=== PATIENT | female | born 1975 | race Caucasian/White ===

== ENCOUNTER 2022-06-05 09:11 | Outpatient (CLI) | payer BC, SELFPAY ==
[2022-06-05 10:03] LABS: Chloride* 97 mmol/L (96-114)
[2022-06-05 10:04] LABS: Albumin* 4.3 g/dL (3.3-5.0); Potassium* 4.1 mmol/L (3.6-5.1); Sodium* 132 mmol/L (135-149)
[2022-06-05 10:06] LABS: Carbon Dioxide* 30 mmol/L (20-32); Cholesterol* 165 mg/dL (90-199); Creatinine* 0.5 mg/dL (0.5-1.5); Estimated Glomerular Filt Rate 116 ml/min; Total Protein* 7.1 g/dL (6.0-8.3)
[2022-06-05 10:07] LABS: Alanine Aminotransferase* 21 U/L (4-35); Alkaline Phosphatase* 55 U/L (40-150); Aspartate Amino Transferase* 33 U/L (12-35); Bilirubin Total* 0.7 mg/dL (0.1-1.5); Blood Urea Nitrogen* 9 mg/dL (5-24); Calcium* 9.5 mg/dL (8.4-10.6); Glucose* 97 mg/dL (60-115); Triglycerides* 139 mg/dL (40-149)
[2022-06-05 10:08] LABS: HDL Cholesterol* 94 mg/dL (>=50); LDL Cholesterol Calculated 43 mg/dL (<100)
[2022-06-05 10:20] LABS: Vitamin D 25 Hydroxy* 24 ng/mL (30-80)
== END 2022-06-05 09:12 | disposition home or self-care (01) ==
PROVIDERS: PCP Family Medicine; Visit Provider Family Medicine
DX: Z01.419 Encounter for gynecological examination (general) (routine) without abnormal findings (principal); M81.0 Age-related osteoporosis without current pathological fracture; E55.9 Vitamin D deficiency, unspecified; Z13.6 Encounter for screening for cardiovascular disorders
CPT/HCPCS: 80053; 80061; 82306

== ENCOUNTER 2023-09-03 09:36 | Outpatient (CLI) | payer BC, SELFPAY | END 2023-09-03 09:37 | disposition home or self-care (01) | LOC: NFLDREF 09-05 11:20 | PROVIDERS: PCP Family Medicine; Referring Provider Family Medicine; Visit Provider Family Medicine | DX: E55.9 Vitamin D deficiency, unspecified (principal); M81.8 Other osteoporosis without current pathological fracture; Z13.220 Encounter for screening for lipoid disorders | CPT/HCPCS: 80053; 80061; 82306 ==

== ENCOUNTER 2023-09-25 14:23 | Outpatient (CLI) | payer BC, SELFPAY ==
--- NOTE | 2023-09-25 14:30 | CRLHL7_ITS ---
For Patients: As a result of the Century Cures Act, medical imaging exams and procedure reports are released immediately into your electronic medical record. You may view this report before your referring provider. If you have questions, please contact your health care provider. DXA BONE MINERAL DENSITY STUDY Reason for exam: Follow-up osteoporosis. Current height (in): 63. Weight (lb): 110. Menopause age: 46. Ethnicity: White. 1. Have you had a previous hip or vertebral fracture? No. 2. Have you had any fractures during your adult life which did not result from significant trauma (e.g., auto accident)? No. 3. Did either of your parents have a hip fracture? No. 4. Do you smoke? No. 5. Have you ever taken Glucocorticoids? No. 6. Do you have rheumatoid arthritis? No. 7. Do you have secondary osteoporosis? Yes. 8. Do you drink 3 or more alcoholic drinks per day? No. 9. Are you being treated for osteoporosis? Yes. 10. Have you ever taken any of the following medications: Actonel, Evista, Fosamax, Miacalcin, Reclast, Boniva, Forteo, HRT (i.e., estrogen/hormone therapy), Protelos, Prolia, Vitamin D, Calcium, other ??? please specify. ANSWER: Yes, vitamin D and calcium. 11. Do you have any of the following medical conditions: Anorexia or bulimia, asthma or emphysema, end stage renal disease, hyperparathyroidism, any seizure disorders, cancer, inflammatory bowel diseases, hysterectomy, other ??? please specify. ANSWER: No. 12. What was your maximum height (inches)? 63. 13. Do you perform weight bearing exercise regularly? Yes. 14. Do you regularly consume dairy products? No. 15. Do you drink caffeinated beverages? Yes. 16. At what age did your period start? 13. 17. Are you premenopausal? No. 18. How many full-term pregnancies have you had? 2. 19. Have you ever missed your period for more than 6 months in a row (not including or menopause)? Yes. TECHNIQUE: Bone mineral density study was performed using the [employer]. FINDINGS: The results of the study expressed as bone mineral density (BMD) are as follows: Lumbar spine L2 to L4: BMD: 0.841 g/cm2. T-score: -2.2. Z-score: -1.5 Neck Left: BMD: 0.557 g/cm2. T-score: -2.6. Z-score: -2.0 Right: BMD: 0.636 g/cm2. T-score: -1.9. Z-score: -1.3 Total Left: BMD: 0.700 g/cm2. T-score: -2.0. Z-score: -1.6 Right: BMD: 0.709 g/cm2. T-score: -1.9. Z-score: -1.5 IMPRESSION: Osteoporosis. *Comparison exams done prior to 09/2019 were performed on different unit, [employer]. COMPARISON: Compared with scan of 08/15/2021, the bone mineral density has increased by 10.2 percent at the spine and decreased by 1.6 percent at the hip. Compared with scan of 01/02/2017, the bone mineral density has decreased by 14.9 percent at the spine and increased by 0.1 percent at the hip. Ignacio Vizcaino M.D. Diagnostic Radiologist [email or web address] ALBERTO/[email or web address] bella/Dictated by: Ignacio Vizcaino MD @ 09/29/2023 9:46:00 AM (Electronically Signed)
== END 2023-09-25 14:24 | disposition home or self-care (01) ==
LOC: RAD 14:24
PROVIDERS: PCP Family Medicine; Visit Provider Family Medicine
DX: M81.0 Age-related osteoporosis without current pathological fracture (principal)
CPT/HCPCS: 77080

== ENCOUNTER 2023-12-23 11:15 | Outpatient (RCR) | payer BC, SELFPAY | END 2024-04-21 23:59 | disposition home or self-care (01) | PROVIDERS: PCP Family Medicine; Visit Provider Physician Assistant Surgical | DX: M25.511 Pain in right shoulder (principal); M25.311 Other instability, right shoulder; R53.1 Weakness; Z51.89 Encounter for other specified aftercare | CPT/HCPCS: 97110; 97140; 97162 ==

== ENCOUNTER 2024-05-12 07:56 | Day surgery (SDC) | payer BC, SELFPAY ==
--- OUTSIDE RECORDS SUMMARY | 2024-05-12 07:59 | XMS_ITS | Continuity of Care Document ---
Author Name [facility] Address Unknown Organization Unknown Address Unknown Procedures FILTER APPLIED:Only known Procedures with Onset Date within the last 5 years Procedure Date Procedure Provider Additional Inform ation Status COMPREHEN METABOLIC PANEL (44871) Completed VITAMIN D 25 HYDROXY (85453) Completed LIPID PANEL (81033) Comp leted Encounters FILTER APPLIED:Only known Encounters with Admission Date within the last 5 years Encounter Location Admission Discharge Billing Code [facility]
[2024-05-12 08:17] VITALS: BP 131/91; PULSE 92; RESP 16; TEMP 36.7; O2SAT 99
[2024-05-12 08:21] VITALS: BMI 21.1
[2024-05-12 08:25] LABS: Hemoglobin* 14.3 gm/dL (12.0-16.0)
[2024-05-12] MEDS: SODIUM CHLORIDE 0.9 % (FLUSH) 10 ML SYRINGE IVF (08:37)
[2024-05-12 08:41] LABS: Ur HCG Qualitative* Negative (Negative)
--- NOTE | 2024-05-12 09:22 | W.PM.H&PU ---
History & Physical Update History & Physical Update H&P Updates: Healing from a left clavicular fracture. Will be mindful of arm positioning.
[2024-05-12] MEDS: LACTATED RINGERS 1000 ML 1,000 ML 100 ML IV (09:36)
[2024-05-12] MEDS: LIDOCAINE 1%-EPI 1:100,000 10 ML INFILTRATI (10:40)
[2024-05-12] MEDS: FERRIC SUBSULFATE 8 GM VIAL 1 VIAL TOPICAL (10:40)
[2024-05-12 10:55] VITALS: BP 102/72; PULSE 80; RESP 16; TEMP 35.9; O2SAT 97
--- NOTE | 2024-05-12 10:57 | P.ANES_ITS ---
Anesthesia Charges Start Date/Time Anesthesia Start Date: 05/12/24 Anesthesia Start Time: 09:50 Stop Date/Time Anesthesia Stop Date: 05/12/24 Anesthesia Stop Time: 10:56 Coding CPT Codes CPT Codes: ANESTH VAGINAL PROCEDURES - 36901 ([id number]) QK - ACLS NURSE 2-4 CNCRNT ANES PROC, QX - SILICA SPRAY MIXER SVC W/ MD MED DIRECTION, P3 - PATIENT W/SEVERE SYS DISEASE
--- NOTE | 2024-05-12 10:57 | W.ANESCHARGE ---
Anesthesia Charges Start Date/Time Anesthesia Start Date: 05/12/24 Anesthesia Start Time: 09:50 Stop Date/Time Anesthesia Stop Date: 05/12/24 Anesthesia Stop Time: 10:56 Coding CPT Codes CPT Codes: ANESTH VAGINAL PROCEDURES - 75139 ([id number]) QK - SIDE HEMMER 2-4 CNCRNT ANES PROC, QX - ARCHITECTURAL DRAFTSPERSON SVC W/ MD MED DIRECTION, P3 - PATIENT W/SEVERE SYS DISEASE
[2024-05-12 11:10] VITALS: BP 100/60; PULSE 69; RESP 16; O2SAT 99
--- NOTE | 2024-05-12 11:12 | P.ANES_ITS ---
Anesthesia Charges Start Date/Time Anesthesia Start Date: 05/12/24 Anesthesia Start Time: 09:50 Stop Date/Time Anesthesia Stop Date: 05/12/24 Anesthesia Stop Time: 10:56 Coding CPT Codes CPT Codes: ANESTH VAGINAL PROCEDURES - 69600 ([id number]) QK - ASSISTANT FOOD SERVICE DIRECTOR 2-4 CNCRNT ANES PROC, QX - MINE ENGINEERING MANAGER SVC W/ MD MED DIRECTION, P3 - PATIENT W/SEVERE SYS DISEASE
--- NOTE | 2024-05-12 11:12 | W.ANESCHARGE ---
Anesthesia Charges Start Date/Time Anesthesia Start Date: 05/12/24 Anesthesia Start Time: 09:50 Stop Date/Time Anesthesia Stop Date: 05/12/24 Anesthesia Stop Time: 10:56 Coding CPT Codes CPT Codes: ANESTH VAGINAL PROCEDURES - 65681 ([id number]) QK - DIRECTOR EMERGENCY DEPARTMENT 2-4 CNCRNT ANES PROC, QX - BIOMEDICAL ENGINEERING PROFESSOR SVC W/ MD MED DIRECTION, P3 - PATIENT W/SEVERE SYS DISEASE
[2024-05-12 11:27] VITALS: BP 110/84; PULSE 70; RESP 16; TEMP 36.5; O2SAT 99
--- NOTE | 2024-05-12 11:33 | P.GYNPRC_ITS ---
Procedure Note Time Seen by Provider: 11:34 Date of procedure: 05/12/24 Will [facility] bill your pro fee for this procedure?: Yes Pre-op diagnosis: 1. High grade cervical dysplasia Post-op diagnosis: 1. High grade cervical dysplasia Procedure: 1. Exam under anesthesia 2. Colposcopy 3. Cold knife cone 4. Endocervical curetting Anesthesia: MAC and local Complications: None Surgeon: Kayla Vieira MD Estimated blood loss (mL): 15 IV fluids (mL): 400 Urine Output (mL): 20 Pathology: specimen obtained, sent to pathology (1. Cervical cone 2. E ndocervical curetting ) Condition: stable Disposition: same day Findings: Exam under anesthesia: Mons normal, clitoris normal, urethral meatus normal. Labia minora and majora normal in appearance bilaterally. Perineum and anus normal appearance. Vaginal introitus normal appearance. Vaginal pink and well rugated with scant white discharge. Cervix pink and without lesion. Bimanual exam reveals uterus to be soft, nontender, mobile, anteverted, of normal size and texture. No palpable adnexal masses or tenderness. Colposcopy: Bright yellow well define area noted from 12:00 to 5:00 after application of Lugol's. Procedure Description: Procedure Description: The patient was taken to the operating room where MAC was administered. EUA revealed the above findings. Coloscopy performed with the above findings. She was prepared and draped in normal sterile fashion in the dorsal lithotomy position in [employer], taking care to avoid lower extremity hyperextension, hyperflexion or compression. A surgical time-out was performed with the entire operative staff per protocol. Pneumoboots were placed and activated. Bladder was drained with a straight cath. A weighted speculum and [place] retractor were placed in the vagina and a tenaculum was placed on the cervix for traction. An angled stitch of 0 Vicryl sutures were placed at 3:00 a.m. and 9:00 a.m. in the lateral vaginal fornices. The cervix was then painted with Lugol's Solution and the lesion borders visualized. A [place] blade was used to excise a cone shaped biopsy circumferentially around the cervical os. The specimen was removed intact. The Kavorkian curette and an ECC brush was used to obtain the endocervical curetting. Tenaculum was removed. For hemostasis, the ball tip electrode was then attached and the unit set to coagulate and the base of the cervix and endocervix were cauterized. Additional hemostasis was provided with application of Monsel's solution to the cervix. Excellent hemostasis was noted at the end of the case. All instruments were removed. Debrief performed per protocol and specimen reviewed. 1. Cervical cone biopsy 2. Endocervical curetting Specimen was sent to pathology in formalin. The patient tolerated the procedure well. Sponge, lap and needle counts were c orrect x 2. The patient was taken to the recovery room in stable condition.
[2024-05-12 11:42] VITALS: BP 118/84; PULSE 67; RESP 16; O2SAT 99
== END 2024-05-12 11:57 | disposition home or self-care (01) ==
PROVIDERS: PCP Family Medicine; Visit Provider Obstetrics & Gynecology
PROC: 0UBC7ZZ Excision of Cervix, Via Natural or Artificial Opening (ICD-10-PCS; CPT 57520; principal; 2024-05-12 09:00)
DX: N87.1 Moderate cervical dysplasia (principal); S42.002D Fracture of unspecified part of left clavicle, subsequent encounter for fracture with routine healing
CPT/HCPCS: 57454; 57520; 00940; 36415; 81025; 85018; 86850; 86900; 86901; 88305; 88307; J1100; J1885; J2250; J2405; J2704; J3010; J3490; J7120

== ENCOUNTER 2024-09-06 09:40 | Outpatient (CLI) | payer BC, SELFPAY | END 2024-09-06 09:41 | disposition home or self-care (01) | LOC: NFLDREF 09-14 08:01 | PROVIDERS: PCP Family Medicine; Referring Provider Family Medicine; Visit Provider Family Medicine | DX: Z00.01 Encounter for general adult medical examination with abnormal findings (principal); M81.0 Age-related osteoporosis without current pathological fracture; E55.9 Vitamin D deficiency, unspecified; R79.89 Other specified abnormal findings of blood chemistry; E78.5 Hyperlipidemia, unspecified; E53.8 Deficiency of other specified B group vitamins; Z13.29 Encounter for screening for other suspected endocrine disorder | CPT/HCPCS: 80053; 80061; 82306; 82607; 82728 ==

== ENCOUNTER 2024-11-04 13:20 | Outpatient (CLI) | payer BC, SELFPAY ==
[2024-11-07 02:07] LABS: HPV Source Cervical
== END 2024-11-04 13:21 | disposition home or self-care (01) ==
PROVIDERS: PCP Family Medicine; Visit Provider Obstetrics & Gynecology
DX: N87.1 Moderate cervical dysplasia (principal); Z12.4 Encounter for screening for malignant neoplasm of cervix; Z11.51 Encounter for screening for human papillomavirus (HPV)
CPT/HCPCS: 87624; 87625; 88141; 88142

== ENCOUNTER 2024-12-29 10:34 | Outpatient (CLI) | payer BC, SELFPAY | END 2024-12-29 10:35 | disposition home or self-care (01) | LOC: NFLDREF 01-03 21:07 | PROVIDERS: PCP Family Medicine; Referring Provider Family Medicine; Visit Provider Family Medicine | DX: R74.01 Elevation of levels of liver transaminase levels (principal); F10.90 Alcohol use, unspecified, uncomplicated; M81.8 Other osteoporosis without current pathological fracture; E55.9 Vitamin D deficiency, unspecified; E53.8 Deficiency of other specified B group vitamins; R79.89 Other specified abnormal findings of blood chemistry | CPT/HCPCS: 80053; 82306; 82607; 82977 ==

== ENCOUNTER 2025-01-18 11:26 | Outpatient (CLI) | payer BC, SELFPAY ==
--- NOTE | 2025-01-18 11:30 | CRLHL7_ITS ---
For Patients: As a result of the Century Cures Act, medical imaging exams and procedure reports are released immediately into your electronic medical record. You may view this report before your referring provider. If you have questions, please contact your health care provider. INDICATION: BILATERAL SCREENING MAMMOGRAM, ASYMPTOMATIC 49 Y/O FEMALE COMPARISON: 08/15/2021, 05/19/2020, 01/11/2019 TECHNIQUE: Digital mammogram in CC and MLO projections including computer-aided detection (CAD) and tomosynthesis. BREAST COMPOSITION: There are scattered areas of fibroglandular density. FINDINGS: No suspicious findings. ASSESSMENT: BI-RADS 1 Negative RECOMMENDATION: Annual screening mammogram. A lay language report of this examination will be provided to the patient. Dictated by: Sharon Ma MD @ 01/19/2025 11:13:30 (Electronically Signed)
== END 2025-01-18 11:27 | disposition home or self-care (01) ==
PROVIDERS: PCP Family Medicine; Visit Provider Family Medicine
DX: Z12.31 Encounter for screening mammogram for malignant neoplasm of breast (principal)
CPT/HCPCS: 77063; 77067